=== PATIENT | female | born 2000 | race Caucasian/White ===

== ENCOUNTER 2021-07-05 14:04 | Outpatient (CLI) | payer OTHER ==
[2021-07-05 14:41] LABS: HEMOGLOBIN 11.7 gm/dl (12.3-15.3); RED BLOOD COUNT 4.07 M/UL (4.00-5.10); WHITE BLOOD COUNT 7.7 K/UL (4.5-11.0)
[2021-07-05 15:41] LABS: BUN/CREATININE RATIO 12 (0-10)
[2021-07-06] MEDS ORDERED: HYDROCODONE-AC1 EACH PO (12:58)
[2021-07-06] MEDS ORDERED: IBUPROFEN600 MG PO (12:58)
[2021-07-06] MEDS ORDERED: DOCUSATE SODIU250 MG PO (12:58)
[2021-07-06] MEDS ORDERED: FEROSUL325 MG PO (12:58)
== END 2021-07-05 14:15 | disposition home or self-care (01) ==
LOC: GENOP 14:04
PROVIDERS: Obstetrics & Gynecology
DX: Z01.812 Encounter for preprocedural laboratory examination (principal); I10 Essential (primary) hypertension; U07.1 COVID-19
CPT/HCPCS: 36415; 80053; 81001; 85025; U0002

== ENCOUNTER 2021-07-06 07:30 | Inpatient (IN) | payer OTHER ==
[2021-07-06] MEDS ORDERED: IBUPROFEN600 MG PO (12:58)
[2021-07-06] MEDS ORDERED: FEROSUL325 MG PO (12:58)
[2021-07-06] MEDS ORDERED: DOCUSATE SODIU250 MG PO (12:58)
[2021-07-06] MEDS ORDERED: HYDROCODONE-AC1 EACH PO (12:58)
[2021-07-07 05:45] LABS: HEMOGLOBIN 10.4 gm/dl (12.3-15.3)
[2021-07-07] MEDS ORDERED: IBUPROFEN600 MG PO (09:20)
[2021-07-07] MEDS ORDERED: COLACE 100MG C100 MG PO (09:20)
[2021-07-07] MEDS ORDERED: HYDROCODON-ACE1 EAC6 PO (09:20)
== END 2021-07-07 16:04 | disposition home or self-care (01) | DRG 786 ==
LOC: OB 08:07
PROVIDERS: Obstetrics & Gynecology; ADMIT Obstetrics & Gynecology
PROC: 10D00Z1 Extraction of Products of Conception, Low, Open Approach (ICD-10-PCS; principal; 2021-07-06 07:30)
DX: O13.4 Gestational [pregnancy-induced] hypertension without significant proteinuria, complicating childbirth (principal); U07.1 COVID-19; O98.52 Other viral diseases complicating childbirth; O99.62 Diseases of the digestive system complicating childbirth; O34.211 Maternal care for low transverse scar from previous cesarean delivery; Z37.0 Single live birth; Z3A.37 37 weeks gestation of pregnancy; Z88.0 Allergy status to penicillin; Z83.3 Family history of diabetes mellitus; Z82.49 Family history of ischemic heart disease and other diseases of the circulatory system; Z82.0 Family history of epilepsy and other diseases of the nervous system; Z83.49 Family history of other endocrine, nutritional and metabolic diseases; Z28.21 Immunization not carried out because of patient refusal
CPT/HCPCS: 36415; 80053; 81001; 82800; 85014; 85018; 85025; C9113; J1580; J1885; J2274; J2405; J2590; J3010; J7120; U0002